=== PATIENT | female | born 1995 | race Caucasian/White ===

== ENCOUNTER 2022-10-03 12:34 | Emergency (ER) | payer SELFPAY | END 2022-10-03 12:50 | disposition left against medical advice (07) | LOC: ED 12:34 | DX: Z53.21 Procedure and treatment not carried out due to patient leaving prior to being seen by health care provider (principal) ==

== ENCOUNTER 2023-11-17 21:28 | Emergency (ER) | payer OTHER ==
[2023-11-17 22:02] VITALS: BP 123/70; O2SAT 97
[2023-11-17] MEDS ORDERED: LIDOCAINE 2%-EPI 1:100000 20 ML MDV ONE (22:55)
--- NOTE | 2023-11-17 23:29 | ED Physician Documentation ---
History of Present Illness - Stated complaint Stated Complaint: NECK PX/SOA - Chief complaint Chief Complaint: General - History obtained from History obtained from: Patient - Additonal information Additional information: 28yF previously healthy presents to the ED with concern that she has multiple abscesses on her body. unable to give reason for this concern. she states she had pus coming out a few days previous. she also felt a snap in her neck earlier. denies fever, ear pain, neck pain. Review of Systems Constitutional: denies: Fever, Chills Ears: denies: Loss of hearing, Ear pain, Drainage/discharge Nose: denies: Rhinorrhea / runny nose Skin: denies: Rash, Lesions PD PAST MEDICAL HISTORY - Past Medical History Past Medical History: Yes Psych: ADD/ADHD - Past Surgical History Past Surgical History: No - Present Medications Home Medications: Ambulatory Orders Medication Instructions Recorded Confirmed Dextroamphetamine/Amphetamine 30 mg PO DAILY 11/17/23 11/17/23 [Dextroamp-Amphetamine 5 mg Tab] Itraconazole 100 mg PO DAILY 11/17/23 11/17/23 Spironolactone [Aldactone] 100 mg PO DAILY 11/17/23 11/17/23 - Allergies Allergies/Adverse Reactions: Allergies Allergy/AdvReac Type Severity Reaction Status Date / Time No Known Drug Allergies Allergy Verified 11/17/23 21:58 - Social History Does the pt smoke?: No Smoking Status: Never smoker Does the pt drink ETOH?: No Does the pt have substance abuse?: No PD ED PE NORMAL - Vitals Vital signs reviewed: Yes - General General: Alert and oriented X 3, No acute distress, Well developed/nourished - HEENT HEENT: Atraumatic, PERRL, EOMI, Ears normal (TMs clear) - Neck Neck: Supple, no meningeal sign - Derm Derm: Normal color, Warm and dry, Other (no evidence of abscess or lesions anywhere on body, specifically none on neck, behind left ear, on scalp or in L axilla) Results - Vitals Vitals: Vital Signs - 24 hr 11/17/23 11/17/23 21:49 23:37 Temperature 36.4 C L Heart Rate 88 Respiratory 20 16 Rate Blood Pressure 123/70 O2 Saturation 97 Oxygen O2 Source Room air PD Medical Decision Making - ED course ED course: 28yF presents with concern that she has abscesses on her body, specifically around area of neck and left ear and left axilla. There is nothing there and it looks quite normal. reassurance provided. patient is behaving somewhat bizarrely but does not appear to be concerned. she is AOX3. Advised to f/u with pcp. return precautions given. Departure - Departure Disposition: Home, Self Care Clinical Impression: Ear pain, left Condition: Stable Instructions: ED Screening Exam Medical Nonurgent Comments: You were seen in the emergency department for Medical screening exam. Your exam was completely normal. Please follow-up with your primary care provider and return to the emergency department if you have any new or worsening symptoms or other concerns. Forms: PCP List Discharge Date/Time: 11/17/23 23:38
[2023-11-17] MEDS: LIDOCAINE 1%-EPI 1:100000 10 ML MDV SUBQ STA (23:36)
== END 2023-11-17 23:38 | disposition home or self-care (01) ==
LOC: ED 21:28
DX: H92.02 Otalgia, left ear (principal); Z79.899 Other long term (current) drug therapy
CPT/HCPCS: 99282; 99283